=== PATIENT | female | born 1935 | race Caucasian/White ===

== ENCOUNTER 2016-08-27 12:41 | Emergency (ER) | payer MEDICARE ==
[~2016-08-27] VITALS: Ht 156.2 cm; Wt 60.0 kg
[~2016-08-27 12:41] MED LIST: CALC-686 PO; CAR2 PO; COU25 PO; COU5 PO; DILT240T6 PO; ERGO400C PO; FISH; HYD200 PO; LOSA50TA37 PO; MULT-64 PO
[2016-08-27 12:44] VITALS: BP 168/93; PULSE 61; RESP 16; O2SAT 96
--- NOTE | 2016-08-27 12:52 | ED.REPORT ---
HPI-General Illness Date of Service Aug 27, 2016 ED Provider: The patient is an 81 year old female with history of hypertension who presents to the emergency department concerned her blood pressure may be elevated. The patient has noticed a headache over the last few weeks. She does not normally get headaches but has had a few occasional headaches that were associated to elevated blood pressure. She denies recent falls or head injury. Today while at [employer] she decided to check her blood pressure and it measured at 185/80. She is currently taking Losartan 150 mg, metoprolol 25 mg BID, and doxazosin 25 mg BID for her blood pressure. She denies visual changes, fever, chills, cough, congestion, chest pain, shortness of breath, abdominal pain, nausea, vomiting or diarrhea. Nursing Notes Stated Complaint: POSSIBLE HIGH BLOOD PRESSURE Chief Complaint: General Complaint Nursing Notes Reviewed: Yes Allergies: Coded Allergies: Penicillins (Verified Allergy, Unknown, hives, 12/11/13) oxycodone (Verified Adverse Reaction, Severe, legs burning, 08/27/16) Scheduled Blayne Carb/Vitamin D3-Expunged, Do Not Renew! (Calcium 500 + D-Expunged, Do Not Renew!) 1 Each Tablet 1 EACH PO DAILY Diltiazem-Expunged Drug, Do Not Renew! (Diltiazem CD-Expunged Drug, Do Not Renew !) 240 Mg Tab.sr.24h 240 MG PO DAILY Doxazosin-Expunged Drug, Do Not Renew! (Doxazosin-Expunged Drug, Do Not Renew!) 2 Mg Tablet 2 MG PO BID Fish Oil-Expunged Drug, Do Not Renew! (Fish Oil-Expunged Drug, Do Not Renew!) Cap DAILY Hydroxychloroqine-Expunged Drug, Do Not Renew (Plaquenil-Expunged Drug, Do Not Renew!) 200 Mg Tablet 200 MG PO BID Losartan-Expunged Drug, Do Not Renew! (Losartan-Expunged Drug, Do Not Renew!) 50 Mg Tablet 50 MG PO DAILY Multivitamins-Expunged Drug, Do Not Renew! (Multivitamins-Expunged Drug, Do Not Renew!) 1 Each Tab.chew 1 EACH PO DAILY Warfarin Inactive Drug Do Not Use (Coumadin Inactive Drug Do Not Use) 2.5 Mg Tablet 2.5 MG PO M, T, W, Th, Sat, Jimenez Warfarin Inactive Drug Do Not Use (Coumadin Inactive Drug Do Not Use) 5 Mg Tablet 5 MG PO Tuesday Miscellaneous Medications Ergocalciferol-Expunged Drug, Do Not Renew! (Vitamin D-Expunged Drug, Do Not Renew!) 400 Unit Capsule 1,000 UNIT PO General Time Seen by MD: 12:51 Chief Complaint Headache, Other (elevated blood pressure) Hx Obtained From: Patient Arrived By: Walk-in Sudden in Onset?: No Onset Occurred: More than a week ago... Symptom Duration: Since onset Location: : Head Quality: Painful Severity: Current: Mild Severity: Maximum: Moderate Recent Healthcare: No recent doctor visit, No recent hospitalization Similar Sx Previous: No Past Medical History Past Medical History Hypertension Denies: COPD, Cancer, Congestive heart failure, Coronary artery disease, Diabetes mellitus, Stroke Denies: Renal failure, Renal insufficiency Family History Noncontributory Smoking History Unknown if Ever Smoker Social History Drug Use: Denies drug use Other Social History: Good social support, , Local resident Ambulatory Status Independent Review of Systems +elevated blood pressure Full Review of Systems Constitutional: Denies: Chills, Fever Ears / Nose / Throat: Denies: Nasal congestion Respiratory: Denies: Non-productive cough, Shortness of breath Cardiovascular: Denies: Chest pain GI: Denies: Abdominal pain, Diarrhea, Nausea, Vomiting Neurologic: Reports: Headache, Denies: Vision change Complete sys rev & neg: except as marked. Physical Exam Vital Signs Vital Signs Date Time Temp Pulse Resp B/P Pulse Ox O2 Delivery O2 Flow Rate FiO2 08/27/16 12:44 36.4 61 16 168/93 96 Room Air Initial VS: Reviewed Head / Eyes: Atraumatic, Normocephalic, PERRL ENT: Mucous membranes moist, Conjunctiva normal, No scleral icterus Neck: Supple, Non-tender, Full range of motion Respiratory: Breath sounds normal, Clear to auscultation, No respiratory distress Cardiovascular: Regular rate & rhythm, Heart sounds normal, Intact distal pulses Abdomen / GI: Soft, Non-tender, No guarding, No rebound, No distention Lymphatic: No lymphadenopathy Extremities: Vascular intact, Neuro intact, No swelling, No tenderness Skin: Warm, Dry, No cyanosis Neurologic: Alert, Oriented, Nonfocal Psychiatric: Mood/affect normal, Behavior normal, Normal thought content General/Constitutional: Awake, Alert, Cooperative Interpretation & Diagnostics Lab Results Interpretation Result Diagram: 08/27/16 1435 08/27/16 1435 Test 08/27/16 14:35 White Blood Count 8.4th/mm3 (3.8-10.1) Red Blood Count 4.18mil/mm3 (3.90-5.20) Hemoglobin 13.2g/dL (12.0-15.6) Hematocrit 39.3% (35.0-46.0) Mean Corpuscular Volume 94.0fL (81-100) Mean Corpuscular Hemoglobin 31.6pg (27.0-35.0) Mean Corpuscular Hemoglobin Concent 33.6% (32.0-37.0) Red Cell Distribution Width 12.5% (12.3-15.4) Platelet Count 166bil/L (150-400) Neutrophils (%) (Auto) 53.2% (40-74) Lymphocytes (%) (Auto) 36.2% (14-46) Monocytes (%) (Auto) 5.7% (4-12) Eosinophils (%) (Auto) 3.9% (0-5) Basophils (%) (Auto) 0.8% (0-3) Sodium Level 138mEq/L (134-144) Potassium Level 4.0mEq/L (3.5-5.2) Chloride Level 98mEq/L (97-108) Carbon Dioxide Level 27mmol/L (18-29) Blood Urea Nitrogen 13mg/dL (8-27) Creatinine 0.49mg/dL (0.57-1.00) Estimat Glomerular Filtration Rate 174mL/min (>59) Glucose Level 90mg/dL (60-99) Calcium Level 8.7mg/dL (8.5-10.1) Total Bilirubin 0.6mg/dL (0.0-1.2) Aspartate Amino Transf (AST/SGOT) 28U/L (0-50) Alanine Aminotransferase (ALT/SGPT) 20U/L (0-32) Alkaline Phosphatase 78U/L (25-165) Total Protein 6.8g/dL (6.4-8.4) Albumin 4.5g/dL (3.4-5.0) ECG Interpretation ECG Interpretation: Atrial fibrillation with a rate of 68 Time: 15:10 Interpreted by: ED physician Re-Eval/Medical Decision Source of Hx: Old records Time of Eval: 15:33 Re-Evaluation/Progress Note: Her headache has improved. Re-Evaluation/Progress Note: Rechecked the patient. Discussed results, diagnosis, and plan for discharge. All questions were addressed. Counseled Regarding: Diagnosis, Lab results, Need for follow-up, When/why to return to ED Discharge & Departure Primary Impression: Hypertension Hypertension type: unspecified secondary hypertension Hypertension goal: unspecified goal Qualified Code: I15.9 - Secondary hypertension, unspecified Additional Impression: Headache Headache type: unspecified Headache chronicity pattern: unspecified pattern Intractability: not intractable Qualified Code: R51 - Headache Disposition: Home Discharge Condition All VS Reviewed: Yes Condition: Stable Additional Instructions: Thank you for entrusting us with your care today. Your EKG and labs today are reassuring. I recommend that you double your metoprolol dose to 50 mg twice daily. If you are feeling lightheaded you should return to your previous dose of 25 mg twice daily. Continue your other regularly prescribed medications. Followup with your regular doctor next week for re-evaluation. Please return to the emergency department for any new or concerning symptoms. Referrals: Sukhwinder Boothe MD (PCP) Scribe Attestation Portions of this note were transcribed by Shannen Osorio. I, Dr. Lang personally performed the history, physical exam and medical decision-making; I reviewed and confirmed the accuracy of the information in the transcribed note. Signed by: Jose Carlos Ching, 08/27/2016 at 1545. copies to: Sukhwinder Boothe MD, Kirk H MD Aug 27, 2016 12:51 Shannen Osorio Aug 27, 2016 12:53
[2016-08-27 14:58] LABS: BASOPHILS % (AUTO) 0.8 % (0-3); EOSINOPHILS % (AUTO) 3.9 % (0-5); MONOCYTES % (AUTO) 5.7 % (4-12); Mean Corpuscular Hemoglobin 31.6 pg (27.0-35.0); NEUTROPHILS % (AUTO) 53.2 % (40-74); Platelet Count 166 bil/L (150-400)
[2016-08-27 15:52] VITALS: BP 144/84; PULSE 62; RESP 16; O2SAT 97
== END 2016-08-27 15:53 | disposition home or self-care (01) ==
LOC: SED 12:41
DX: I15.9 Secondary hypertension, unspecified (principal); R51 Headache; Z79.01 Long term (current) use of anticoagulants; Z88.0 Allergy status to penicillin; Z88.5 Allergy status to narcotic agent

== ENCOUNTER 2016-10-19 21:49 | Emergency (ER) | payer MEDICARE ==
[~2016-10-19] VITALS: Ht 157.5 cm; Wt 59.1 kg
[2016-10-19 21:51] VITALS: BP 166/92; PULSE 82; RESP 16; O2SAT 98
--- NOTE | 2016-10-19 22:18 | ED.REPORT ---
HPI-Chest Pain 40 and Over Date of Service Oct 19, 2016 ED Provider: Hank Shook MD An 81 year old female with a history of hypertension and atrial fibrillation on Warfarin presents to the ED with substernal chest pain onset two days ago. The pain radiates under her left breast and is exacerbated by bending over or laying on her side. The patient denies pleuritic pain, cough, shortness of breath, fever, chills, nausea, vomiting, or other symptoms. She has not had similar symptoms in the past. Nursing Notes Stated Complaint: CHEST PAIN Chief Complaint: Chest Pain Nursing Notes Reviewed: Yes Allergies: Coded Allergies: erythromycin base (Verified Allergy, Intermediate, 10/19/16) Penicillins (Verified Allergy, Unknown, hives, 12/11/13) oxycodone (Verified Adverse Reaction, Severe, legs burning, 08/27/16) Scheduled Blayne Carb/Vitamin D3-Expunged, Do Not Renew! (Calcium 500 + D-Expunged, Do Not Renew!) 1 Each Tablet 1 EACH PO DAILY Diltiazem-Expunged Drug, Do Not Renew! (Diltiazem CD-Expunged Drug, Do Not Renew !) 240 Mg Tab.sr.24h 240 MG PO DAILY Doxazosin-Expunged Drug, Do Not Renew! (Doxazosin-Expunged Drug, Do Not Renew!) 2 Mg Tablet 2 MG PO BID Fish Oil-Expunged Drug, Do Not Renew! (Fish Oil-Expunged Drug, Do Not Renew!) Cap DAILY Hydroxychloroqine-Expunged Drug, Do Not Renew (Plaquenil-Expunged Drug, Do Not Renew!) 200 Mg Tablet 200 MG PO BID Losartan-Expunged Drug, Do Not Renew! (Losartan-Expunged Drug, Do Not Renew!) 50 Mg Tablet 50 MG PO DAILY Multivitamins-Expunged Drug, Do Not Renew! (Multivitamins-Expunged Drug, Do Not Renew!) 1 Each Tab.chew 1 EACH PO DAILY Warfarin Inactive Drug Do Not Use (Coumadin Inactive Drug Do Not Use) 2.5 Mg Tablet 2.5 MG PO M, T, W, Th, Sat, Jimenez Warfarin Inactive Drug Do Not Use (Coumadin Inactive Drug Do Not Use) 5 Mg Tablet 5 MG PO Tuesday Miscellaneous Medications Ergocalciferol-Expunged Drug, Do Not Renew! (Vitamin D-Expunged Drug, Do Not Renew!) 400 Unit Capsule 1,000 UNIT PO General Time Seen by MD: 22:17 Chief Complaint Chest pain Hx Obtained From: Patient Arrived By: Walk-in Sudden in Onset?: No Onset Occurred: 2 days ago Symptom Duration: Since onset Location: : Substernal Quality: Painful Radiation: : Abdomen (Just under left breast) Severity: Current: Moderate Severity: Maximum: Moderate Associated with: Denies: Cough, productive, Fever, Nausea, Shortness of Breath , Vomiting Exacerbated by: Lying down (On side), Movement (Bending) Context Related History: Reports: Arrhythmia, Hypertension Recent Healthcare: No recent doctor visit Similar Sx Previous: No Past Medical History Past Medical History Hypertension Atrial fibrillation on Wafarin as of 10/19/16 Past Surgical History Leg fracture repair Family History Noncontributory Smoking History Never Smoker Social History Alcohol Use: 1-3 per day Drug Use: Denies drug use Other Social History: Good social support, , Local resident Ambulatory Status Independent Review of Systems Constitutional: Denies: Chills, Fever Respiratory: Denies: Non-productive cough, Pleuritic pain, Shortness of breath Cardiovascular: Reports: Chest pain (Substernal) GI: Denies: Diarrhea, Nausea, Vomiting Complete sys rev & neg: except as marked. Physical Exam Physical Exam Notes: Initial Vital Signs Vital Signs (First) Date Time Temp Pulse Resp B/P Pulse Ox O2 Delivery O2 Flow Rate FiO2 10/19/16 21:51 36.1 82 16 166/92 98 10/20/16 00:42 Room Air Initial VS: Reviewed, Vital signs abnormal Head / Eyes: Atraumatic, Normocephalic ENT: Conjunctiva normal, No scleral icterus Extremities: Vascular intact, Neuro intact, No swelling Neurologic: Alert, Oriented, Nonfocal Psychiatric: Mood/affect normal, Behavior normal, Normal thought content General/Constitutional: Awake, Alert, No acute distress Respiratory / Chest: Breath sounds NL, Breath sounds = bilat, No respiratory distress Cardiovascular: Heart rate NL, Heart sounds NL Heart Rate / Rhythm: Positive: Irreg irregular rhythm (Consistent with atrial fibrillation ) Abdomen: Soft, Non-tender Neck: Supple, Full range of motion, No JVD Skin: Atraumatic (No bruising or bleeding), Color NL, No rash, Warm, Dry No diaphoresis Interpretation & Diagnostics Lab Results Interpretation Result Diagram: 10/19/16 2245 10/19/16 2245 Test 10/19/16 22:45 White Blood Count 6.1th/mm3 (3.8-10.1) Red Blood Count 3.69mil/mm3 (3.90-5.20) Hemoglobin 11.6g/dL (12.0-15.6) Hematocrit 34.8% (35.0-46.0) Mean Corpuscular Volume 94.3fL (81-100) Mean Corpuscular Hemoglobin 31.4pg (27.0-35.0) Mean Corpuscular Hemoglobin Concent 33.3% (32.0-37.0) Red Cell Distribution Width 12.1% (12.3-15.4) Platelet Count 204bil/L (150-400) Neutrophils (%) (Auto) 55.3% (40-74) Lymphocytes (%) (Auto) 27.9% (14-46) Monocytes (%) (Auto) 7.4% (4-12) Eosinophils (%) (Auto) 8.4% (0-5) Basophils (%) (Auto) 0.8% (0-3) Band Neutrophils % 0% (1-5) Prothrombin Time 23.2sec (8.1-12.5) Prothromb Time International Ratio 2.13ratio Sodium Level 136mEq/L (134-144) Potassium Level 3.8mEq/L (3.5-5.2) Chloride Level 98mEq/L (97-108) Carbon Dioxide Level 24mmol/L (18-29) Blood Urea Nitrogen 15mg/dL (8-27) Creatinine 0.30mg/dL (0.57-1.00) Estimat Glomerular Filtration Rate 306mL/min (>59) Glucose Level 105mg/dL (60-99) Calcium Level 8.4mg/dL (8.5-10.1) Magnesium Level 1.6mg/dL (1.6-2.6) Total Bilirubin 0.4mg/dL (0.0-1.2) Aspartate Amino Transf (AST/SGOT) 41U/L (0-50) Alanine Aminotransferase (ALT/SGPT) 40U/L (0-32) Alkaline Phosphatase 143U/L (25-165) Troponin T 0.010ug/L (0.0-0.011) Total Protein 6.6g/dL (6.4-8.4) Albumin 3.9g/dL (3.4-5.0) Hold Dobbins Top Tube Received (Received) Lab values outside NL range: no clinical significance. Lab Results Interpretation: Troponin negative. INR therapeutic ECG Interpretation ECG Interpretation: Atrial fibrillation rate 96 Time: 22:03 Interpreted by: ED physician X-Ray Chest Interpretation Chest Xray Interpretation: Normal chest x-ray View: Portable, 1 view Interpretation / Wet Read by: Wet read ED physician Re-Eval/Medical Decision Med Decision/Clinical Course 81-year-old female with left anterior chest wall tenderness consistent with costochondritis. She has been having intermittent chest wall pain for the last 2 days which is exacerbated by certain movements. She has no associated symptoms, and no classic angina type pain. Troponin done many hours after onset of pain is negative. EKG is normal. Chest x-ray is normal. I see no evidence at this time of pulmonary or cardiac issues. Source of Hx: Old records Time of Eval: 00:07 Patient Status: Condition improved Re-Evaluation/Progress Note: Discussed with patient x-ray and lab results, diagnosis, and plan for discharge. Follow-up and return to the ER instructions given. Patient agrees with plan for care and all questions were addressed. Counseled Regarding: Diagnosis, Lab results, Need for follow-up, When/why to return to ED Discharge & Departure Primary Impression: Costochondritis Disposition: Home Discharge Condition All VS Reviewed: Yes Condition: Improved Patient Instructions: Costochondritis (ED) Additional Instructions: Thank you for entrusting us with your care today. Your x-ray, EKG, and lab results, including the heart enzyme test, are normal with no evidence of serious illness. Call your doctor for a follow-up appointment. Return to the ER with any new or worsening symptoms. Call me at [phone] between the hours of 9 PM and 6 AM for the next couple of nights if you have any problems or questions. Referrals: Sukhwinder Boothe MD (PCP) Scribe Attestation Portions of this note were transcribed by Amanda House. I, Dr. Shook, personally performed the history, physical exam, and medical decision-making; I reviewed and confirmed the accuracy of the information in the transcribed note. Signed by: Jose Carlos Choi, 10/20/2016, 01:00 copies to: Sukhwinder Boothe MD, Howard L MD Oct 19, 2016 22:18 AMANDA HOUSE Oct 19, 2016 22:27
[2016-10-19 22:54] LABS: BASOPHILS % (AUTO) 0.8 % (0-3); EOSINOPHILS % (AUTO) 8.4 % (0-5); MONOCYTES % (AUTO) 7.4 % (4-12); Mean Corpuscular Hemoglobin 31.4 pg (27.0-35.0); Mean Corpuscular Volume 94.3 fL (81-100); NEUTROPHILS % (AUTO) 55.3 % (40-74); Platelet Count 204 bil/L (150-400)
[2016-10-19 23:10] LABS: INR 2.13 ratio
[2016-10-19 23:31] LABS: Magnesium 1.6 mg/dL (1.6-2.6); TROPONIN T 0.01 ug/L (0.0-0.011)
[2016-10-20 00:42] VITALS: BP 160/67; PULSE 84; RESP 14; O2SAT 98
--- NOTE | 2016-10-20 08:44 | DRSVH ---
PROCEDURE: X-RAY CHEST ONE VIEW, PORTABLE ([id number]) INDICATIONS: chest pain TECHNIQUE: One view of the chest was acquired. COMPARISON: [facility], , CHEST 1VW (PORTABLE), 01/03/2011, 6:16. FINDINGS: Surgical changes and devices: None. Lungs and pleura: No pleural effusions or pneumothorax. Lungs are clear. Mediastinum: Mediastinal contours appear normal. Heart size is prominent. Bones and chest wall: No suspicious bony lesions. Overlying soft tissues appear unremarkable. IMPRESSION: No acute cardiopulmonary disease. Dictated by: Sheldon OSORIO Interpreted: Elyse Dickens MD on 10/20/2016 at 8:43 Transcribed by: ALBERTINA on 10/20/2016 at 8:44 Approved by: Elyse Dickens M.D. on 10/20/2016 at 22:10
== END 2016-10-20 00:43 | disposition home or self-care (01) ==
LOC: SED 21:49
DX: M94.0 Chondrocostal junction syndrome [Tietze] (principal); I11.9 Hypertensive heart disease without heart failure; I48.91 Unspecified atrial fibrillation; Z88.0 Allergy status to penicillin; Z88.1 Allergy status to other antibiotic agents; Z88.5 Allergy status to narcotic agent; Z79.01 Long term (current) use of anticoagulants

== ENCOUNTER → 2017-03-31 | Day surgery (SDC) | payer MEDICARE ==
[2017-03-31] VITALS (8 sets, daily range): BP systolic 116–179; BP diastolic 70–101; PULSE 63–73; RESP 12–16; O2SAT 97–98
[~2017-03-31] VITALS: Ht 157.5 cm; Wt 55.1 kg
[~2017-03-31] MED LIST changes: +ACET1TAB42 PO; +Atropine 0.4 mg/mL Inj IVPUSH PRN; +Bupivacaine-MPF 0.5% 30 mL Inj INFILTRATE ONE; -CALC-686 PO; +CALC-78 PO; -CAR2 PO; +CHOL200047 PO; -COU25 PO; -COU5 PO; +Codeine-APAP 30-300 mg Tablet PO PRN; -DILT240T6 PO; +Dexamethasone 4 mg/mL Inj IVPUSH PRN; +EPHEDrine Sulfate 50 mg/mL Inj IVPUSH PRN; -ERGO400C PO; -FISH; -HYD200 PO; +HYDROmorphone 1 mg/mL Inj IVPUSH PRN; -LOSA50TA37 PO; +Labetalol 5 mg/mL 20 mL Inj IV PRN; +Lactated Ringer's 1,000 ML IV ONE; +Lactated Ringer's 1,000 ML IV SCH; +Lactated Ringer's 500 ML IV PRN; +METO25TA6 PO; -MULT-64 PO; +Ondansetron 2 mg/mL 2 mL Inj IVPUSH PRN; +Ondansetron 2 mg/mL 2 mL Inj ONE; +POLY17PO6 PO; +Phenylephrine 10,000 mCg/mL Inj IVPUSH PRN; +Propofol 10,000 mCg/mL 20 mL Inj ONE; +WARF2.5T PO; +WARF5TAB PO; +fentaNYL-PF 50 mCg/mL 2 mL Inj IVPUSH PRN; +fentaNYL-PF 50 mCg/mL 2 mL Inj ONE; +hydrALAZINE 20 mg/mL Inj IVPUSH PRN
--- NOTE | 2017-03-31 07:15 | PCM.HPANE ---
Patient Data Surgeon Admitting Provider: Attending Provider:Antonio Morales MD Primary Care Physician:Mario Pedroza DO Other Provider:[facility] Reason for Visit Left Breast Cancer, Right Breast Papilloma Ht/WT & BMI Height (Feet): 5 Height (Inches): 2 Weight (Kilograms): 54.88 Body Mass Index 22.00 Allergies Coded Allergies: erythromycin base (Verified Allergy, Intermediate, 03/02/17) Penicillins (Verified Allergy, Unknown, hives, 03/02/17) piroxicam (Unverified Allergy, Unknown, 03/02/17) oxycodone (Verified Adverse Reaction, Severe, legs burning, 03/02/17) Past Anesthesia History Anesthesia History: Denies:: Abnormal Airway, Anesthesia Reactions, Difficult Intubation, Fam Anesthesia Reaction, Fam Malignant Hypertherm, Malignant Hyperthermia Diabetes History Hx Diabetes?: No Medications Blood Thinner: Coumadin Hypertension Medication: Yes Home Meds Incl Beta Des: Yes Reported Medications Warfarin Sodium (Coumadin)5 Mg Tablet5 Mg PO Tuesday 30 Days Ref 0 03/09/17 Warfarin Sodium (Coumadin)2.5 Mg Tablet2.5 Mg PO -Tuesday 30 Days Ref 0 03/09/17 Calcium Carbonate/Vitamin D3 (Calcium 500 + Vit D Caplet)1 Each Tablet1 Each PO BID 03/09/17 Cholecalciferol (Vitamin D3) (Vitamin D3)2,000 Unit Capsule2,000 Unit PO 03/09/17 Metoprolol Tartrate 25 Mg [id number] Mg PO HS Ref 0 03/02/17 Metoprolol Tartrate 25 Mg [id number] Mg PO am Ref 0 03/02/17 History History of ENT Problems?: No HEENT History: Denies:: Abnormal Airway Cataracts Difficult Intubation Dysphagia Glaucoma Hearing Problem Sinus Problem TMJ Denture Type: None Teeth Condition: Within Normal Limits Hx of Heart Problems?: Yes Cardiovascular History: Positive for:: Atrial Fibrillation Hypertension Irregular Heartbeat (a fib ) Denies:: Chest Pain Congestive Heart Failure Edema Hx of Respiratory Problem?: No Respiratory History: Denies:: Asthma COPD Emphysema Oxygen Administration Tuberculosis Use of C-PAP Machine Hx Neurologic Problems?: No Hx of GI Problems?: No Hx of Problems?: Yes Other Pertinent History: [facility]- followed by Dr Haines Female Hx: Denies:: Currently (post menopausal) Hx Musculoskeletal Problems?: Yes Musculoskeletal History: Positive for:: Musculoskeletal Trauma (prior hx of right hip fracture) Hx of Psycho/Social Problems?: Yes Hx Surgeries?: Yes (HIP 2010) Other History: Positive for:: Cancer (SKIN) Denies:: Hospitalization Thyroid Disease History Blood Transfusions: Denies:: Blood Transfuse Reaction Blood Transfusions Hx Diabetes: No Hx Alcohol Use: YesAlcoholic Drinks Per Day: 2-3 dailyHx Substance Use: No Smoking Status: Never Smoker Have You Smoked inLast 12 mo: No Stop/Bang S-Snoring: Do You Snore Loudly: No T-Tired: feel tired, fatigued: No O-Obsered: Observed not breath: No P-Blood Pressure: treated: No B- Body Mass Index > 35 kg/m2: No A- Age over 50: Yes N- Neck Large Circumference: No G- Gender Male: No NICHOLAS Total Score: 1 Risk Assessment Category Category 1A: Patient has history of documented sleep apnea, and HAS NOT received any narcotic, sedative or anesthesia administration during this stay. Category 1B: Patient has history of documented sleep apnea, and HAS received any narcotic , sedative or anesthesia administration during this stay Category 2: Patient has SUSPECTED Obstructive Sleep Apnea, and HAS received any narcotic , sedative or anesthesia administration during this stay. Category 3: Patient has SUSPECTED Obstructive Sleep Apnea and HAS NOT received narcotic, sedative or anesthesia administration during this stay. Category 4: Outpatient in Procedural Areas with known sleep apnea or who screen positive for High Risk via the STOP/BANG questionnaire. Exam Exam General Appearance: Alert, Oriented X3, Cooperative HEENT/AIRWAY: MP 2, Neck Movement (FROM), Mouth Opening (WNL) Lungs: Clear to Auscultation Heart: Exam Unremarkable Plan Impression Patient chart reviewed, patient interviewed and anesthestic plan with risks, benefits, and alternatives discussed, and informed consent obtained. ASA Physical Status: ASA2 Mod Systemic Disease Anesthetic Plan: GA Bene/Risks/Altern/Consents: Yes HP Complete Prior to Induction: Yes Johnnie Craig MD Mar 31, 2017 07:14
--- NOTE | 2017-03-31 15:14 | PCM.SURGOP ---
Surgical Operative Report Date of Service: Mar 31, 2017 Pre Operative Diagnosis Left breast invasive lobular carcinoma, right breast intraductal papillomas Post Operative Diagnosis Same Procedure: Wire localized left partial mastectomy, wire localized right breast excisional biopsy, left axillary sentinel lymph node biopsy Surgeon and Metal Cleaner: Surgeon: Antonio Morales MD Assistants: Jossy Frost MD PGY-4 Indication for Procedure 82-year-old woman who began having right breast bloody nipple discharge, spontaneous. Diagnostic mammograms done that showed a 1 cm high density focal mass in the left breast central to the nipple. There were no mammographic abnormalities in the right breast. After undergoing multiple biopsies on both sides, she was ultimately diagnosed with invasive lobular carcinoma, ER/NY positive, HER-2 negative from the left breast 12 o'clock position. The right breast biopsies showed a focus of papillary hyperplasia with atypia and fibrocystic change in the 11 o'clock position. After discussion of risks and benefits, she agreed to proceed with wire localized left partial mastectomy with left axillary sentinel lymph node biopsy, and right breast wire localized excisional biopsy. Findings: There was a single left axillary sentinel lymph node, with an ex vivo count of 299 compared to a background count of 3. Procedure Details Preoperatively, the patient underwent bilateral wire localization in the [facility]. She underwent left breast area tracer injection for sentinel node identification. She was brought to the operating room where she underwent smooth induction of general anesthesia. There was an excellent signal in the left axilla, so methylene blue was not necessary. She was prepped and draped in wide sterile fashion. A preprocedural timeout was performed according to the SCOAP checklist, and all were found to be in agreement. A curvilinear circumareolar right breast incision was made. The nipple areolar complex was elevated and subareolar dissection was performed to the confluence of subareolar ducts. Skin flaps were then raised superiorly and inferiorly along the lateral right breast. The wire was delivered into the wound. Using the wire as a guide, circumferential dissection was carried out, encompassing the subareolar tissue, the wire, and a significant amount of tissue posterior to the wire. The wire was not encountered during the dissection. The excised tissue was oriented with a suture, and a specimen radiograph was obtained. That tissue was sent for permanent pathology, labeled as right breast subareolar excision. The cavity was marked with medium hemoclips. The breast parenchyma was closed with interrupted 3-0 Vicryl sutures. The skin incision was closed with a running 4-0 Vicryl subcuticular stitch. A left breast circumareolar incision was then made. Skin flaps were raised. The wire was delivered into the wound from the lateral aspect. Circumferential dissection was carried out around the wire, which was not encountered during dissection. Once the excised tissue was dissected free, it was oriented with suture, and a specimen radiograph was obtained, confirming the mammographic abnormality and clip. That tissue was sent for permanent pathology, labeled as left breast tissue, upper inner quadrant. There was some slightly nodular tissue deep to the nipple along the inferolateral margin of the cavity. A separate shave margin was obtained with electrocautery. The tissue was oriented with suture, and sent for permanent pathology. The cavity was marked with hemoclips circumferentially. The breast parenchyma was closed with interrupted 3-0 Vicryl sutures. The skin incision was closed with a running 4-0 Vicryl subcuticular stitch. A separate curvilinear incision was made at the inferior border of the hairbearing skin in the left axilla. Dissection was carried through the subcutaneous tissue until the axillary fascia was incised. Using the gamma counter as a guide, the area of maximum radiotracer was dissected free from the surrounding tissues. This corresponded to a single sentinel node, which was not pathologic by palpation. Ex vivo, and had a gamma count of 299. The background count was 3. The left axillary sentinel node was sent for permanent pathology. The axillary fascia was then closed with an interrupted 3-0 Vicryl suture. The skin incision was closed with a running 4-0 Vicryl subcuticular stitch. Steri-Strips and sterile dressings were applied to the various incisions. At the end the case all needle and sponge counts were correct 2. The patient was awakened from anesthesia without difficulty, and taken to the recovery room in satisfactory condition, having tolerated the procedure well. Complications There were no periprocedural complications identified. Surgical Specimen Removed: Yes Specimen sent to Pathology: Yes Surgical Specimen description: Right breast subareolar excision. Left breast tissue, upper inner quadrant. Left breast inferolateral margin. Left axillary sentinel lymph node. Anesthetic Plan: GA Grafts, Implants: None Output, Estimated Blood Loss: 30 Blood Administration during cowan: No Drains: None Catheters: None copies to: Sukhwinder Boothe MD; Ritchie Garcia MD; Mario Pedroza Joshua D MD Mar 31, 2017 15:14
--- NOTE | 2017-03-31 15:26 | DRSVH ---
PROCEDURE: NM SENTINEL NODE INJECTION ONLY, LEFT BREAST RADIOPHARMACEUTICAL: 0.5 mCi Millipore filtered Tc-99m sulfur colloid. INDICATIONS: pre op in [facility] PROCEDURE: The indications, alternatives, benefits, risks, and complications of the procedure were explained to the patient. Written informed consent was obtained and placed in the chart. The area around the nip ple was prepped and draped in a sterile fashion. Tc-99m sulfur colloid was injected in the outer edg e of the areola in the left breast. No image was obtained. IMPRESSION: Administration of radiotracer into the left breast periareolar region for intra-operativ e sentinel lymph node localization. Dictated by: Elyse Dickens M.D. on 03/31/2017 at 15:24 Approved by: Elyse Dickens M.D. on 03/31/2017 at 15:25
--- NOTE | 2017-03-31 15:38 | PCM.DISURG ---
Surgical Discharge Instruction Date of Service Mar 31, 2017 Dates of Hospitalization Date of Hospital Admission Providers Admitting Physician: Primary Care Physician: Mario Pedroza DO Attending Physician: Antonio Morales MD Discharge Diagnosis Post Operative diagnosis Same Diet Discharge Diet: No restrictions Activity Discharge Activity-General: No restrictions, Balance rest and activity, Elevate extremity, Activity as pain allows, No driving while taking narcotic Dressing and Incisional Care Dressing Care: Allow Steri Stripes to fall off, Remove outer dressing after 24 hrs Hygiene: May shower (in 24 hours. Allow warm soapy water to run over incisions and then pat the bandaids dry.), DO NOT soak incision under water, NO bathtub, hot tub or whirlpool Follow Up Plan Follow-up Provider (F9): Antonio Morales MD Follow-up appointment: Weeks (2-3) Jossy Frost MD Mar 31, 2017 15:38
--- NOTE | 2017-03-31 16:32 | PCM.ANEP1 ---
Post Anesthesia PACU Phase 1 Assessment Vital Signs Vital Signs Date Time Temp Pulse Resp B/P Pulse Ox O2 Delivery O2 Flow Rate FiO2 03/31/17 15:55 36.8 68 16 144/88 98 Room Air 03/31/17 15:51 67 12 178/87 98 Room Air 03/31/17 15:45 36.0 64 12 171/77 98 Room Air 03/31/17 15:40 64 12 163/101 98 Room Air 03/31/17 15:35 63 12 151/81 98 Room Air 03/31/17 15:30 36.4 73 13 167/82 98 Room Air 03/31/17 10:53 36.1 68 16 179/88 97 Room Air Anesthetic Administered: GA Level of Alertness: Awake, talking LOUIS's with Equal Strength: Yes Pain: No Nausea or Vomiting: No CV Function & Hydration Stable: Yes Airway Device: Oxygen Delivery: Room Air Lungs: Normal Air Movement PACU Phase 2 Assessment Complications: No Follow up Care: No Patient Instructions Provided: N/A Johnnie Craig MD Mar 31, 2017 16:32
--- NOTE | 2017-04-01 10:12 | DRSVH ---
SPECIMEN: 03/31/2017 CLINICAL: Breast specimen right. Correlation is made to exams dated: 03/31/2017 localization, 03/07/2017 mammogram, 02/16/2017 mammogram, and 02/09/2017 mammogram - [facility]. Right breast surgical specimen with butterfly clip which marked biopsy proven atypia. The subareolar coil clip is not identified. IMPRESSION: SPECIMEN Right breast surgical specimen with butterfly clip which marked biopsy proven atypia. The subareolar coil clip is not identified. This exam was interpreted at Station ID: [id number]. Natanael Mohamud M.D. cj/:03/31/2017 21:02:38 copy to: VIKASH PITTMAN Additional referring physicians: AYESHA CLARKE, ASHLEY SIDHU
--- NOTE | 2017-04-01 10:12 | DRSVH ---
SPECIMEN: 03/31/2017 CLINICAL: Breast specimen left. Correlation is made to exams dated: 03/31/2017 mammogram, 03/31/2017 localization, 02/16/2017 mammogram, and 02/09/2017 mammogram - [facility]. Tip of the localizing wire is present. There is a butterfly clip as well as the targeted known malign terrell. IMPRESSION: SPECIMEN Tip of the localizing wire is present. There is a butterfly clip as well as the targeted known malig rajesh. This exam was interpreted at Station ID: [id number]. Natanael Mohamud M.D. cj/:03/31/2017 21:01:05 copy to: VIKASH PITTMAN Additional referring physicians: AYESHA CLARKE, ASHLEY SIDHU
== END | disposition home or self-care (01) ==
LOC: SAS 09:30
PROVIDERS: ATTEND Student in an Organized Health Care Education/Training Program
DX: C50.912 Malignant neoplasm of unspecified site of left female breast (principal); C50.911 Malignant neoplasm of unspecified site of right female breast; Z17.0 Estrogen receptor positive status [ER+]; E78.5 Hyperlipidemia, unspecified; I10 Essential (primary) hypertension; I48.91 Unspecified atrial fibrillation; Z86.711 Personal history of pulmonary embolism; Z87.891 Personal history of nicotine dependence; Z79.01 Long term (current) use of anticoagulants
CPT/HCPCS: 19101; 19301; 38525; 38792; 76098; A9541; J2405; J2704; J3010; J7120